=== PATIENT | male | born 1975 ===

== ENCOUNTER 2023-01-05 05:17 | Day surgery (SDC) | payer OTHER ==
[2023-01-03 17:27] VITALS: BMI 27.7
[2023-01-05 06:27] VITALS: RESP 16
[2023-01-05] MEDS ORDERED: MIDAZOLAM HCL 2 MG/2 ML SINGLE DOSE VIAL ONE (07:50)
[2023-01-05] MEDS ORDERED: PROPOFOL 40 ML ONE (07:50)
[2023-01-05] MEDS ORDERED: ceFAZolin SODIUM 1 GM VIAL IVPB ONE (08:17)
[2023-01-05] MEDS ORDERED: ACETAMINOPHEN 500 MG TABLET (FP) PO ONE (09:30)
[2023-01-05] MEDS ORDERED: ACETAMINOPHEN 500 MG TABLET (FP) ONE (09:30)
[2023-01-05] MEDS ORDERED: ELECTROLYTE-148 SOLN 1,000 ML IV SCH (09:30)
[2023-01-05 10:56] VITALS: BP 102/63; PULSE 64; TEMP 98
== END 2023-01-05 10:15 | disposition home or self-care (01) ==
LOC: JASU-SURG 05:17
PROVIDERS: ATTEND Urology
PROC: 0T7D8DZ Dilation of Urethra with Intraluminal Device, Via Natural or Artificial Opening Endoscopic (ICD-10-PCS; principal; 2023-01-05 08:00)
DX: N40.1 Benign prostatic hyperplasia with lower urinary tract symptoms (principal); R33.8 Other retention of urine
CPT/HCPCS: A4648; C9740; L8699